=== PATIENT | female | born 1985 | race Asian ===

== ENCOUNTER 2018-10-05 04:21 | Emergency (ER) | payer OTHER ==
[2018-10-05 04:49] VITALS: BMI 26.7
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
[2018-10-05] MEDS ORDERED: DEXTROSE 5%-WATER - 1,000 ML IV SCH (06:00)
[2018-10-05] MEDS ORDERED: CEFTRIAXONE 1 GM in DEXTROSE 5%-WATER - 100 ML IVPB ONE (06:14)
[2018-10-05] MEDS ORDERED: ACETAMINOPHEN 1000 MG/100 ML VIAL (NON FORMULARY) IVPB ONE (06:14)
[2018-10-05] MEDS ORDERED: CEFTRIAXONE 1 GM/50 ML BAG ONE ×2 (06:19→07:36)
[2018-10-05] MEDS ORDERED: ACETAMINOPHEN INJECTION 100 ML IVPB ONE ×2 (06:19→17:42)
[2018-10-05] MEDS ORDERED: SODIUM CHLORIDE 2,000 ML IV SCH (06:45)
--- NOTE | 2018-10-05 07:01 | PDOC ---
*Physical Exam - Vital Signs Last Vital Signs Temp Pulse Resp BP Pulse Ox 97.6 F 84 18 125/84 100 10/05/18 04:30 10/05/18 04:30 10/05/18 04:30 10/05/18 04:30 10/05/18 04:30 - Physical Exam Comments: 10/05/18 07:46 GEN: A&O, mild acute distress likely secondary to pain HEENT: PERRL, EOMI, moist mucus membranes, no exudate NECK: supple, no lymphadenopathy HEART: RRR, no murmurs noted LUNGS: CTA b/l no wheezes or crackles ABDOMEN: Soft, nontender EXTREMITIES: R partial amputation of the foot, Left foot cool to touch, no palpable DP/PT pulses, femoral pulse in tact, no mottling noted, patient with some movement of leg and sensation in tact. SKIN: no abscess/erythema noted, though patient with complain of perirectal pain ED Treatment Course - LABORATORY CBC & Chemistry Diagram: 10/05/18 06:50 10/05/18 06:50 - ADDITIONAL ORDERS Additional order review: Laboratory Results 10/05/18 05:54 POC Glucometer 55 10/05/18 05:54 POC Glucometer 55 Medical Decision Making - Medical Decision Making 10/05/18 08:06 Pt received from night resident. States she is still having significant pain in her left foot and perianal region. She is currently complaining of significant chills, states that tylenol did not help her chills or pain. Arterial Duplex pending. Unable to CTA with aortic runoff at this time as only access is .22 in the left EJ. Will await arterial duplex and discuss with vascular pending results. will give 2 mg Morphine IV for pain control and reassess 10/05/18 08:56 Arterial duplex with decreased laminar flow throughout the left leg. Case discussed with Vascular surgery who requests CTA with aorta runoff. US guided .20 guage IV inserted in Right AC. for CTA. 10/05/18 12:42 CTA with aorta runoff without any significant arterial stenosis or decreased arterial flow in either leg. Pt still with significant pain in her left foot and leg. Will discuss with hospitalist for Observation for intractable leg pain. 10/05/18 13:15 Case discussed with hospitalist who does not feel that patient meets any admission criteria. Will d/c to home at this time and recommend follow up with primary care physician and pain management. *DC/Admit/Observation/Transfer Diagnosis at time of Disposition: Foot pain, left, Leg pain, left, Back pain, chronic - Discharge Dispostion Disposition: HOME Condition at time of disposition: Stable Decision to Admit order: No - Referrals Referrals: Raman Forman [Primary Care Provider] - - Patient Instructions Additional Instructions: You were evaluated in the Emergency room for left leg pain. As your foot felt cool and pulses were difficult to feel, there was a concern that you had decreased blood flow to your foot. A test called a CT angiogram with aortic runoff was performed which revealed normal blood flow to your leg and foot. Your case was discussed with a vascular surgeon who did not feel you need any vascular intervention at this time. As your pain continued throughout your time in the emergency room, your case was discussed with the hospitalist team for possible observation overnight. The hospitalist did not feel you meet admission criteria at this time. It is important that you follow up with your primary care physician within one week of discharge from the hospital or sooner if your pain persists or worsens. If you have any other concerning symptoms you should be seen by your doctor or return to the emergency department. It is recommended that you follow up with pain management in the clinic as well. Your primary care physician can refer you to pain management if you do not have a pain management doctor already. Continue taking all of your home medications as they are prescribed. - Post Discharge Activity
[2018-10-05 07:17] LABS: BASO % 0.7 % (0-2.0); EOS % 1.7 % (0-4.5); HEMATOCRIT 34.6 % (32.4-45.2); HEMOGLOBIN 11.9 GM/dL (10.7-15.3); LYMPH % 40.6 % (8-40); MCH 30.4 pg (25.7-33.7); MCHC 34.6 g/dl (32.0-36.0); MEAN CELL VOLUME 88.1 fl (80-96); MEAN PLT VOLUME 8.6 fl (7.5-11.1); MONO % 9.7 % (3.8-10.2); NEUT % 47.3 % (42.8-82.8); PLATELET COUNT 280 K/MM3 (134-434); RBC 3.92 M/mm3 (3.60-5.2); RDW 14.9 % (11.6-15.6); WHITE BLOOD COUNT 6.8 K/mm3 (4.0-10.0)
[2018-10-05 07:29] VITALS: TEMP 97
[2018-10-05] MEDS ORDERED: morphine CARPU-JECT 2 MG/1 ML DISP.SYRIN IVPUSH ONE (07:30)
[2018-10-05] MEDS ORDERED: MORPHINE SULFATE 2 MG/ML VIAL ONE (07:34)
[2018-10-05 07:50] LABS: ALBUMIN 3.8 g/dl (3.4-5.0); ALK PHOS 140 U/L (45-117); ANION GAP 9 MMOL/L (8-16); BILIRUBIN,TOTAL 0.4 mg/dL (0.2-1); BLOOD UREA NITROGEN 7 mg/dL (7-18); CALCIUM 8.8 mg/dL (8.5-10.1); CHLORIDE 108 mmol/L (98-107); CO2 23 mmol/L (21-32); CREATININE 0.5 mg/dL (0.55-1.3); GLUCOSE,RANDOM 76 mg/dL (74-106); POTASSIUM 3.9 mmol/L (3.5-5.1); SGOT/AST 36 U/L (15-37); SGPT/ALT 48 U/L (13-61); SODIUM 139 mmol/L (136-145); TOT PROT 7.2 g/dl (6.4-8.2)
[2018-10-05 07:55] LABS: INR 0.98 (0.83-1.09); PROTHROMBIN TIME (PATIENT) 11.6 SEC (9.7-13.0)
[2018-10-05 07:58] LABS: ACTIVATED PTT 30.2 SECONDS (25.2-36.5)
[2018-10-05] MEDS ORDERED: morphine CARPU-JECT 4 MG/1 ML DISP.SYRIN IVPUSH ONE ×2 (09:18→13:44)
[2018-10-05] MEDS ORDERED: morphine SULFATE 4 MG/ML VIAL ONE ×2 (09:25→13:53)
[2018-10-05 10:01] LABS: URINE APPEARANCE CLEAR; URINE BILIRUBIN NEGATIVE (<2.0 mg/dL); URINE COLOR COLORLESS; URINE GLUCOSE (UA) 1+ (NEGATIVE); URINE KETONE NEGATIVE (NEGATIVE); URINE LEUK ESTERASE NEGATIVE (NEGATIVE); URINE NITRITE NEGATIVE (NEGATIVE); URINE PROTEIN NEGATIVE (NEGATIVE); URINE UROBILINOGEN NEGATIVE mg/dL (0.2-1.0)
[2018-10-05] MEDS ORDERED: methylPREDNISolone NA SUCC 125 MG/2 ML VIAL IVPUSH ONE (10:39)
[2018-10-05 10:46] LABS: EPI CELLS RARE /HPF (FEW)
[2018-10-05] MEDS ORDERED: methylPREDNISolone NA SUCC 125 MG/2 ML VIAL ONE (12:04)
[2018-10-05 14:08] VITALS: BP 105/67; PULSE 82
[2018-10-05] MEDS ORDERED: KETOROLAC TROMETHAMINE 60 MG/2 ML VIAL ONE (17:41)
--- NOTE | 2018-10-06 12:57 | EKG ---
Test Reason : Blood Pressure : / mmHG Vent. Rate : 089 BPM Atrial Rate : 089 BPM P-R Int : 140 ms QRS Dur : 090 ms QT Int : 362 ms P-R-T Axes : 069 036 060 degrees QTc Int : 440 ms NORMAL SINUS RHYTHM NONSPECIFIC T WAVE ABNORMALITY ABNORMAL ECG WHEN COMPARED WITH ECG OF 29-JAN-2012 15:26, NONSPECIFIC T WAVE ABNORMALITY NO LONGER EVIDENT IN INFERIOR LEADS Confirmed by ANGELA AMIN MD ([id number]) on 10/06/2018 12:57:09 PM Referred By: Confirmed By:ANGELA AMIN MD
== END 2018-10-05 16:00 | disposition home or self-care (01) ==
LOC: JER 04:21
DX: M79.675 Pain in left toe(s) (principal); T14.8XXS Other injury of unspecified body region, sequela; W17.89XS Other fall from one level to another, sequela; R35.8 Other polyuria; E03.9 Hypothyroidism, unspecified; Z89.431 Acquired absence of right foot
CPT/HCPCS: 36415; 73590-TC-LT-FY; 73610-TC-LT-FY; 73630-TC-LT; 73706-TC-RT; 80053; 81003; 81015; 82962; 83605; 84484; 84703; 85025; 85610; 85651; 85730; 86140; 86850; 86900; 86901; 87040; 87086; 93005; 93010; 93925-TC; 99284-25; J0131; J7030

== ENCOUNTER 2018-12-01 01:55 | Emergency (ER) | payer OTHER ==
[2018-12-01 02:17] VITALS: TEMP 98.9; BMI 29.2
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
[2018-12-01] MEDS ORDERED: ACETAMINOPHEN 1000 MG/100 ML VIAL (NON FORMULARY) IVPB ONE (03:33)
[2018-12-01] MEDS ORDERED: morphine CARPU-JECT 4 MG/1 ML DISP.SYRIN IM ONE (03:56)
[2018-12-01] MEDS ORDERED: morphine SULFATE 4 MG/ML VIAL ONE (04:00)
[2018-12-01 05:05] VITALS: BP 124/80; PULSE 88
[2018-12-01] MEDS ORDERED: morphine CARPU-JECT 2 MG/1 ML DISP.SYRIN IM ONE (06:50)
[2018-12-01] MEDS ORDERED: MORPHINE SULFATE 2 MG/ML VIAL ONE (06:53)
== END 2018-12-01 07:09 | disposition home or self-care (01) ==
LOC: JER 01:55
PROC: 3E0233Z Introduction of Anti-inflammatory into Muscle, Percutaneous Approach (ICD-10-PCS; principal; 2018-12-01)
DX: M54.6 Pain in thoracic spine (principal); G89.29 Other chronic pain; G82.20 Paraplegia, unspecified; E03.9 Hypothyroidism, unspecified; T14.8XXS Other injury of unspecified body region, sequela; W13.0XXS Fall from, out of or through balcony, sequela; Z89.431 Acquired absence of right foot
CPT/HCPCS: 96372; 99281-25

== ENCOUNTER 2018-12-29 07:55 | Emergency (ER) | payer OTHER ==
[2018-12-29 08:11] VITALS: BP 123/68; PULSE 110; TEMP 98.1; BMI 29.2
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
--- NOTE | 2018-12-29 09:33 | PDOC ---
Attending Attestation - Resident Resident Name: Ruth Parry - ED Attending Attestation I have performed the following: I have examined & evaluated the patient, The case was reviewed & discussed with the resident, I agree w/resident's findings & plan, Exceptions are as noted - HPI HPI: 12/29/18 09:23 33y F hx of paraplegia (s/p trauma), hypothyroidism, drug abuse, presents to the ED with L thigh L buttock pain sp fall 3 days ago when transferring from bed to wheelchair landing on her buttock. Pt has been having worsening spasms and pain in the L thigh/back. Pt notes some chronic constipation that predates her fall. Pt denies any head injury or LOC. Denies any other symptoms. Taking percocet, flexeril, baclofen without significant improvement. She last took her meds around 5pm today. GENERAL: The patient is awake, alert, and fully oriented, Nontoxic - in no acute distress. HEAD: Normocephalic, atraumatic. NECK: Normal range of motion, supple BACK: No focal midline bony ttp on cervical/thoracic.lumbar region, +L paraspinal hypertrophy and ttp, LUNGS: Breath sounds equal, clear to auscultation bilaterally. No wheezes, no rhonchi, no rales. HEART: Regular rate and rhythm, normal S1 and S2 without murmur, rub or gallop. ABDOMEN: Soft, nontender, No guarding, no rebound. . No CVA tenderness EXTREMITIES: hypertrophied L thigh, mild dfifuise ttp on L hip without ecchymosis will give analgesics, antispasmotics xray of ls spine and pelvis will reasess - Physicial Exam PE: 12/29/18 16:49 see above - Medical Decision Making 12/29/18 16:28 pt feeling ipmroved will dc the pt with pmd fu return precautions were discussed I discussed the physical exam findings, ancillary test results and final diagnoses with the patient. I answered all of the patient's questions. The patient was satisfied with the care received and felt comfortable with the discharge plan and treatment plan. The patient will call their primary care physician within 24 hours to arrange follow-up and will return to the Emergency Department with any new, persistent or worsening symptoms.
[2018-12-29] MEDS ORDERED: morphine CARPU-JECT 4 MG/1 ML DISP.SYRIN IVPUSH ONE (09:59)
[2018-12-29] MEDS ORDERED: diazePAM 2 MG TABLET PO ONE (09:59)
[2018-12-29] MEDS ORDERED: diazePAM 2 MG TABLET ONE (10:46)
[2018-12-29] MEDS ORDERED: morphine SULFATE 4 MG/ML VIAL ONE (10:46)
[2018-12-29] MEDS ORDERED: diphenhydrAMINE HCL 25 MG CAPSULE (FP) PO ONE (11:07)
[2018-12-29] MEDS ORDERED: HYDROmorphone HCl 2 MG/ML VIAL ONE (12:29)
[2018-12-29] MEDS ORDERED: HYDROmorphone HCL CARPU-JECT 2 MG/1 ML DISP.SYRIN IVPUSH ONE (12:30)
[2018-12-29 18:31] LABS: EPI CELLS 3.8 /HPF (0-5/HPF); PH,URINE 5.5 (5.0-8.0); URINE APPEARANCE CLEAR; URINE BACTERIA 4.2 /hpf (NEGATIVE); URINE BILIRUBIN NEGATIVE (NEGATIVE); URINE CASTS 9 /lpf (0-8); URINE COLOR DK YELLOW; URINE GLUCOSE (UA) NEGATIVE (NEGATIVE); URINE KETONE TRACE (NEGATIVE); URINE LEUK ESTERASE TRACE (NEGATIVE); URINE NITRITE NEGATIVE (NEGATIVE); URINE PROTEIN TRACE (NEGATIVE); URINE RBC 1 /hpf (0-4); URINE UROBILINOGEN 0.2 mg/dL (0.2-1.0); URINE WBC 3 /hpf (0-5)
[2018-12-30] MEDS ORDERED: CYCLOBENZAPRINE HCL 5 MG TABLET PO ONE (17:06)
== END 2018-12-29 20:42 | disposition home or self-care (01) ==
LOC: JER 07:55
PROC: 3E033GC Introduction of Other Therapeutic Substance into Peripheral Vein, Percutaneous Approach (ICD-10-PCS; principal; 2018-12-29)
PROC: 3E033NZ Introduction of Analgesics, Hypnotics, Sedatives into Peripheral Vein, Percutaneous Approach (ICD-10-PCS; 2018-12-29)
DX: M54.9 Dorsalgia, unspecified (principal); G89.29 Other chronic pain; W13 Fall from, out of or through building or structure; S24.101S Unspecified injury at T1 level of thoracic spinal cord, sequela; F19.20 Other psychoactive substance dependence, uncomplicated; E05.00 Thyrotoxicosis with diffuse goiter without thyrotoxic crisis or storm
CPT/HCPCS: 73523-TC-FY; 81003; 84703; 96374; 96375; 99282-25

== ENCOUNTER 2019-01-12 05:48 | Emergency (ER) | payer OTHER | END 2019-01-12 11:12 | disposition home or self-care (01) | LOC: JER 05:48 ==

== ENCOUNTER 2019-01-26 22:56 | Emergency (ER) | payer OTHER ==
[2019-01-26 23:07] VITALS: BMI 25.0
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
[2019-01-26] MEDS ORDERED: SILVER SULFADIAZINE 1% TOP CREAM 50 GM JAR TP ONE ×2 (23:31→23:37)
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
[2019-01-27] MEDS ORDERED: LIDOCAINE HCL 5% TOP OINTMENT 50 GM TUBE TP ONE (01:13)
[2019-01-27 02:06] VITALS: BP 148/72; PULSE 82; TEMP 97.8
== END 2019-01-27 02:07 | disposition home or self-care (01) ==
LOC: JER 22:56
PROC: 2W2JX4Z Dressing of Right Finger using Bandage (ICD-10-PCS; principal; 2019-01-26)
DX: T23.001A Burn of unspecified degree of right hand, unspecified site, initial encounter (principal); T23.221A Burn of second degree of single right finger (nail) except thumb, initial encounter; T79.8XXA Other early complications of trauma, initial encounter; X15.0XXA Contact with hot stove (kitchen), initial encounter; Y93.89 Activity, other specified; Y92.010 Kitchen of single-family (private) house as the place of occurrence of the external cause; Y99.8 Other external cause status
CPT/HCPCS: 16020; 99281-25

== ENCOUNTER 2019-03-30 01:59 | Emergency (ER) | payer OTHER ==
[2019-03-30 02:18] VITALS: TEMP 97.4; BMI 24.7
--- NOTE | 2019-03-30 02:34 | PDOC ---
Attending Attestation - Resident Resident Name: Toya Yanes - ED Attending Attestation I have performed the following: I have examined & evaluated the patient, The case was reviewed & discussed with the resident, I agree w/resident's findings & plan - HPI HPI: 03/30/19 04:02 Pt wants pain meds. - Physicial Exam PE: 03/30/19 04:03 Agree with resident exam - Medical Decision Making 03/30/19 04:03 Pt is refusing to give us urine and blood. She wants dilaudid for her back pain. She will not get narcotic here. Pt wants to leave AMA. She is stable to AMA. We will call ambulance for patient to go home. 03/30/19 04:04 Pt has normal CBC; chem is pending. UA pending; lab misplaced the UA, it will be some time before we get the result back 03/30/19 19:53 All labs are stable
--- NOTE | 2019-03-30 02:40 | PDOC ---
History of Present Illness - General Chief Complaint: Back Pain Stated Complaint: BACK PAIN Time Seen by Provider: 03/30/19 02:22 History Source: Patient Exam Limitations: No Limitations - History of Present Illness Initial Comments: 03/30/19 02:33 34 YOF with h/o paraplegia (spinal cord injury in 2003, no BLE function at all) who p/w spastic back pain from her mid- to lower back. She took all of her normal pain medications including baclofen, Tylenol, and Percocet. She notes that she had similar pain last year when she had an episode of osteomyelitis and needed her right foot amputated. She notes urinary frequency, urgency, and foul odor. She denies any numbness, urinary incontinence. Past History - Past Medical History Allergies/Adverse Reactions: Allergies Allergy/AdvReac Type Severity Reaction Status Date / Time ketorolac tromethamine Allergy Intermediate facial Verified 01/26/19 23:07 [From Toradol] swelling vancomycin Allergy Intermediate facial Verified 01/26/19 23:07 swelling dexamethasone [From Decadron] Allergy Verified 01/26/19 23:07 dexamethasone sod phosphate Allergy Verified 01/26/19 23:07 [From Decadron] ondansetron HCl [From Zofran] Allergy Verified 01/26/19 23:07 Home Medications: Ambulatory Orders Levothyroxine [Synthroid -] 150 mcg PO DAILY 07/24/13 Baclofen 10 mg PO TID 04/15/14 Cyclobenzaprine HCl [Flexeril -] 10 mg PO DAILY #4 tablet 12/29/18 Clindamycin [Cleocin -] 150 mg PO TID #27 capsule 01/12/19 Oxycodone HCl/Acetaminophen [Percocet 5-325 mg Tablet] 1 - 2 tab PO PRN PRN Pregabalin [Lyrica -] 150 mg PO BID 01/12/19 Anemia: No CVA: No COPD: No Diabetes: No HTN: No Hypercholesterolemia: No Thyroid Disease: Yes (HYPO/graves disease) - Surgical History Abdominal Surgery: Yes Appendectomy: Yes Neurologic Surgery: Yes (S/P INJURY FROM FALL:SPINAL CORD DAMAGE) Orthopedic Surgery: Yes - Reproductive History (#): 5 Para: 2 Therapeutic (s) & number: No - Immunization History Td Vaccination: No Immunization Up to Date: (2010) - Suicide/Smoking/Psychosocial Hx Smoking Status: No Smoking History: Never smoked Have you smoked in the past 12 months: No Number of Cigarettes Smoked Daily: 0 Hx Alcohol Use: No Drug/Substance Use Hx: No Substance Use Type: None Hx Substance Use Treatment: No Review of Systems - Review of Systems Able to Perform ROS?: Yes Comments:: 03/30/19 02:37 GEN: no fever, chills, malaise, generalized weakness, or weight change HEENT: no ear pain, sore throat, vision change, or eye pain CV: no chest pain, palpitations, lightheadedness, syncope, or edema RESP: no cough, wheezing, or SOB GI: no abdominal pain, nausea, vomiting, diarrhea, constipation, or white/black/ bloody stool : frequency, urgency, and urinary odor, no dysuria, hematuria, incontinence, retention, bleeding, or discharge MSK: back pain, no neck pain, muscle weakness/pain, or joint swelling/pain NEURO: no headache, seizure, vertigo, numbness, tingling, or focal weakness PSYCH: no substance use, no behavior change SKIN: no jaundice, no rash ROS otherwise negative except as noted in HPI *Physical Exam - Vital Signs Last Vital Signs Temp Pulse Resp BP Pulse Ox 97.4 F L 104 H 20 113/81 95 03/30/19 02:13 03/30/19 02:13 03/30/19 02:13 03/30/19 02:13 03/30/19 02:13 - Physical Exam Comments: 03/30/19 02:38 GENERAL: uncomfortable-appearing, A/Ox4, no distress, answers questions appropriately HEENT: PERRLA, EOMI, moist mucous membranes NECK/BACK: no midline ttp, no spinal stepoff or deformity, no hematoma, full ROM , neck supple CARDIOVASCULAR: regular rate/rhythm, normal S1S2, no MGR, strong peripheral pulses, capillary refill <2 seconds LUNGS/RESPIRATORY: no respiratory distress, CTAB GI/ABDOMEN: symmetric [id number], normoactive BS, soft, no ttp, no midline pulsatile masses : no CVA tenderness EXTREMITIES: BLE cool but equal temperature, no edema, right foot amputation, otherwise no acute muscle atrophy, no acute deformity SKIN: warm and dry, no pallor, no jaundice, no rash, no bruising, no skin breakdown, no cuts, no lesions NEUROLOGICAL: GCS 15, CN II-XII grossly intact, 5/5 BUE strength proximally and distally, BLE paralysis as per prior examinations, no facial droop ED Treatment Course - LABORATORY CBC & Chemistry Diagram: 03/30/19 03:15 03/30/19 03:15 Medical Decision Making - Medical Decision Making 03/30/19 02:50 Pt with h/o with chronic back pain p/w acute exacerbation of same chronic back pain. No new red flag symptoms (see HPI). Initial Vital Signs Temp Pulse Resp BP Pulse Ox 97.4 F L 104 H 20 113/81 95 03/30/19 02:13 03/30/19 02:13 03/30/19 02:13 03/30/19 02:13 03/30/19 02:13 Exam: As noted in Physical Exam section. DDX IBNLT: Possible UTI/pyelonephritis, or chronic back pain d/t DDD, DJD, osteophyte, compression fxr, other vertebral or spinous process fxr; much LL malignancy (i.e. multiple myeloma), spinal epidural abscess, epidural hematoma, meningitis, or other more concerning etiology. W/U ordered: UA UCx CBC CMP TX ordered: Laboratory Tests 03/30/19 03/30/19 03:15 03:15 WBC 6.0 RBC 3.88 Hgb 11.7 Hct 34.7 MCV 89.4 MCH 30.1 MCHC 33.7 RDW 13.7 Plt Count 231 MPV 8.6 Absolute Neuts (auto) 2.4 Neutrophils % 40.1 L Lymphocytes % 44.5 H Monocytes % 9.9 Eosinophils % 4.5 D Basophils % 1.0 Nucleated RBC % 0 Sodium 142 Potassium 5.1 Chloride 108 H Carbon Dioxide 27 Anion Gap 7 L BUN 17.0 Creatinine 0.7 Est GFR (CKD-EPI)AfAm 130.10 Est GFR (CKD-EPI)NonAf 112.25 Random Glucose 85 Calcium 9.2 Total Bilirubin 0.4 AST 38 H ALT 52 Alkaline Phosphatase 125 H Total Protein 7.1 Albumin 3.9 The patient refuses urine sample - states she wants to go home AMA. Risks of leaving AMA are discussed with her thoroughly, she understands there could be infection or other pathology. I discuss with her that there may be serious mortality/morbidity; she understands and has capacity. She signs AMA paperwork, requests transport which is ordered. She is picked up by transport and leaves the department with AMA discharge instruction packet. *DC/Admit/Observation/Transfer Diagnosis at time of Disposition: Back pain, chronic Qualifiers: Back pain location: back pain in unspecified location Back pain laterality: unspecified Qualified Code(s): M54.9 - Dorsalgia, unspecified - Discharge Dispostion Disposition: AGAINST MEDICAL ADVICE Condition at time of disposition: Good Decision to Admit order: No - Referrals Referrals: Ross Forman [Primary Care Provider] - - Patient Instructions Printed Discharge Instructions: Managing Chronic Low Back Pain Additional Instructions: You were seen in the ER for an acute flare-up of your chronic back pain. We recommended blood and urine tests, but you chose not to have the urine tests and chose to leave against medical advice. Please also follow up with your primary care provider in 1-3 days, and discuss changing your pain management regimen so that you can get on top of your chronic back pain before getting to the point where you need to come to the ER. Call their clinic as soon as possible, tell them you were seen in the ER for back pain, and tell them you need an appointment. If you have any new or worsening symptoms please come back to the ER at any time (24 hours a day), especially for fever, new numbness, new tingling new weakness, new urinary or bowel incontinence or retention, or other new symptoms. If you are having severe or life threatening symptoms, or symptoms that make it unsafe to drive or have someone drive you, please call 911. - Post Discharge Activity
[2019-03-30] MEDS ORDERED: LIDOCAINE 5% TOPICAL PATCH TP ONE (02:46)
[2019-03-30] MEDS ORDERED: LIDOCAINE 5% TOPICAL PATCH ONE (03:01)
[2019-03-30 03:26] LABS: EOS % 4.5 % (0-4.5); HEMATOCRIT 34.7 % (32.4-45.2); HEMOGLOBIN 11.7 GM/dL (10.7-15.3); LYMPH % 44.5 % (8-40); MCH 30.1 pg (25.7-33.7); MCHC 33.7 g/dl (32.0-36.0); MEAN CELL VOLUME 89.4 fl (80-96); MEAN PLT VOLUME 8.6 fl (7.5-11.1); MONO % 9.9 % (3.8-10.2); NEUT % 40.1 % (42.8-82.8); PLATELET COUNT 231 K/MM3 (134-434); RBC 3.88 M/mm3 (3.60-5.2); RDW 13.7 % (11.6-15.6)
[2019-03-30 04:19] LABS: CREATININE 0.7 mg/dL (0.55-1.3); POTASSIUM 5.1 mmol/L (3.5-5.1)
[2019-03-30 04:20] LABS: ALBUMIN 3.9 g/dl (3.4-5.0); BILIRUBIN,TOTAL 0.4 mg/dL (0.2-1); CALCIUM 9.2 mg/dL (8.5-10.1); TOT PROT 7.1 g/dl (6.4-8.2)
[2019-03-30 07:26] VITALS: BP 112/72; PULSE 74
[2019-03-30] MEDS ORDERED: LIDOCAINE PATCH REMOVAL MC SCH (22:00)
== END 2019-03-30 07:25 | disposition left against medical advice (07) ==
LOC: JER 01:59
DX: M54.9 Dorsalgia, unspecified (principal); M54.5 Low back pain; G89.29 Other chronic pain; E03.9 Hypothyroidism, unspecified
CPT/HCPCS: 36415; 80053; 85025; 99282-25